=== PATIENT | male | born 1985 | race African-American/Black ===

== ENCOUNTER 2021-10-30 08:32 | Emergency (ER) | payer OTHER, SELFPAY ==
[2021-10-30] MEDS ORDERED: Lactated Ringer's 1,000 ML BAG ONE (08:38)
[2021-10-30] MEDS ORDERED: Midazolam HCl 2 mg/2 ml Vial ONE (09:01)
[2021-10-30] MEDS ORDERED: Lactated Ringer's 2,000 ML ONE (09:01)
[2021-10-30 09:07] LABS: #Basophils 0.2 thou/uL (0.0-0.2); #Eosinphils 0.1 thou/uL (0.0-0.7); #Lymphocytes 1.4 thou/uL (1.20-3.40); #Monocytes 1.6 thou/uL (0.11-0.59); %Basophils 1.2 % (0.0-1.0); %Eosinophils 0.6 % (0.0-10.0); %Lymphocytes 8.4 % (21.0-51.0); %Monocytes 9.6 % (0.0-10.0); %Neutrophils 80.2 % (42.0-75.0); Hemoglobin 12.4 g/dL (14.0-18.0); Mean Corpuscular HGB CONC 32.4 g/dL (32.0-36.0); Mean Corpuscular Hemoglobin 31.3 pg (27.0-31.0); Mean Corpuscular Volume 96.8 fL (78.0-98.0); Mean Platelet Volume 11.3 fL (7.4-10.4); Platelet Count 198 thou/uL (130-400); RBC Distribution Width 11.9 % (11.5-14.5); Red Blood Cell (RBC) Count 3.96 mill/uL (4.70-6.10); White Blood Cell (WBC) Count 16.2 thou/uL (4.8-10.8)
[2021-10-30 09:19] LABS: ALT (SGPT) 38 U/L (8-55); AST (SGOT) 72 U/L (5-34); Acetaminophen Less than 10.0 mcg/mL (10.0-30.0); Albumin 4.3 g/dL (3.5-5.0); Alcohol Less than 10 mg/dL (Less than 10); Alkaline Phosphatase 70 U/L (40-110); Anion Gap 19 mmol/L (10-20); BUN (Urea Nitrogen) 24 mg/dL (8.9-20.6); Bilirubin, Total 2.5 mg/dL (0.2-1.2); CK (CPK) 2441 U/L (30-200); Calc. Creatinine Clearance 0 mL/min (70-130); Calcium 9.1 mg/dL (7.8-10.44); Carbon Dioxide 23 mmol/L (22-29); Chloride 105 mmol/L (98-107); Estimated GFR 87; Globulin 3.7 g/dL (2.4-3.5); Glucose 107 mg/dL (70-105); Salicylate Less than 8.0 mg/dL (15.0-30.0); Sodium 144 mmol/L (136-145)
[2021-10-30 09:36] LABS: Potassium 2.9 mmol/L (3.5-5.1)
[2021-10-30 09:39] LABS: INR-International Normal Ratio 1.1; Prothrombin Time 14.3 sec (12.0-14.7)
[2021-10-30 09:40] LABS: PTT 30.2 sec (22.9-36.1)
[2021-10-30] MEDS ORDERED: Thiamine HCl 200 MG/2 ML VIAL ONE (09:40)
[2021-10-30 09:55] LABS: Phosphorus 1.6 mg/dL (2.3-4.7)
[2021-10-30 10:09] LABS: Base Excess-Venous 1.3 mmol/L (-2.0 to 3.0); Bicarbonate (HCO3v) 26.6 mmol/L (22.0-28.0); CO2 Tension (PvCO2) 43.3 mmHg (42.0-51.0); Calcium, Ionized 1.16 mmol/L (1.15-1.33); Chloride 110 mmol/L (98-107); Hemoglobin - Calc 14.5 g/dL (14.0-18.0); Potassium 3.2 mmol/L (3.5-5.1); Sodium 147 mmol/L (138-145); T. Carbon Dioxide 27.9 mmol/L (22.0-28.0); vO2 Saturation-calc 98.9 % (60.0-85.0)
[2021-10-30 10:27] LABS: Bilirubin Moderate (Negative); Blood, Urine Moderate (Negative); Clarity Hazy (Clear); Glucose, Urine (Dipstick) Negative (Negative); Ketone, Urine > or equal to 80 mg/dL (Negative); Leukocyte Negative (Negative); Nitrite Negative (Negative); Protein, Urine (Dipstick) 100 mg/dL (Neg-Trace); Specific Gravity, Urine 1.035 (1.002-1.036)
[2021-10-30 10:30] LABS: Bacteria/HPF Rare-Few HPF (None Seen); RBC/HPF 21-50 HPF (0-3); Squamous Epithelial 0-3 HPF (0-3); WBC/HPF 0-3 HPF (0-3)
[2021-10-30 10:35] LABS: Amphetamine Detected (NotDetected); Cocaine Metabolite Screen Detected (NotDetected); Methamphetamine Detected (NotDetected); Opiate Screen Not Detected (NotDetected); Phencyclidine (PCP) Not Detected (NotDetected); THC/Cannabinoid Screen Not Detected (NotDetected)
[2021-10-30 10:36] LABS: Barbiturates Screen Not Detected (NotDetected); Benzodiazepine Screen Not Detected (NotDetected); Medtox Control Line Valid? VALID (VALID); Methadone Not Detected (NotDetected); Oxycodone Screen Not Detected (NotDetected); Tricyclic Screen Not Detected (NotDetected)
== END 2021-10-30 17:08 | disposition short-term general hospital (02) ==
LOC: MADERS 08:32
DX: M62.82 Rhabdomyolysis (principal); E86.0 Dehydration; G93.40 Encephalopathy, unspecified; E87.6 Hypokalemia; E83.39 Other disorders of phosphorus metabolism; R82.4 Acetonuria; R31.29 Other microscopic hematuria; F19.10 Other psychoactive substance abuse, uncomplicated
CPT/HCPCS: 36415; 51701; 70450; 71045; 80053; 80306; 80307; 81003; 81015; 82330; 82550; 82803; 83605; 83735; 84100; 84443; 85025; 85610; 85730; 87040; 87086; 93005; 94760; 96361; 96365; 96366; 96375; 96376; J2250; J3411; J3480; J7120